=== PATIENT | female | born 1960 | race African-American/Black ===

== ENCOUNTER 2016-09-01 22:52 | Emergency (ER) | payer OTHER ==
[2016-09-01 23:07] VITALS: BP 134/107; PULSE 96; TEMP 98; BMI 31.8
--- NOTE | 2016-09-01 23:27 | PDOC ---
History of Present Illness - General Chief Complaint: Eye Problem Stated Complaint: B/L EYE BURNING Time Seen by Provider: 09/01/16 22:59 History Source: Patient Exam Limitations: No Limitations - History of Present Illness Initial Comments: 09/01/16 23:08 This is a 55-year-old female who comes in complaining of bilateral discomfort in her eyes. Patient said she was eating a corn chips that had a chili pepper extract on it and accidentally rubbed her eyes. Patient said her eyes began to burn and she then took her contacts out which made her eyes hurt more. Patient denies any other complaints. PAST MEDICAL HISTORY: no significant history PAST SURGICAL HISTORY: no significant history FAMILY HISTORY: no pertinant history SOCIAL HISTORY: Pt lives with family and is employed. MEDICATIONS: reviewed ALLERGIES: As per nursing notes Review of Systems General: No fevers or chills, no weakness, no weight loss HEENT: No change in vision. No sore throat,. No ear pain CardioVascular: No chest pain or shortness of breath Respiratory:No cough, or wheezing. Gastrointestinal: no nausea, vomitting, diarrhea or constipation, No rectal bleeding Genitourinary: No dysuria, hematuria, or frequency Musculoskeletal: No joint or muscle pain or swelling Neurologic: No headache, vertigo, dizziness or loss of consciousness Psychiatric: nor depression Skin: No rashes or easy bruising Endocrine: no increased thirst or abnormal weight change Allergic: no skin or latex allergy All other systems reviewed and normal GENERAL: The patient is awake, alert, and fully oriented, in no acute distress. HEAD: Normal with no signs of trauma. EYES: Pupils equal, round and reactive to light, extraocular movements intact, sclera anicteric, there is some mild injection of the conjunctiva with tearing of the eyes bilateral. EXTREMITIES: Normal range of motion, no edema. NEUROLOGICAL: Normal speech, normal gait. PSYCH: Normal mood, normal affect. SKIN: Warm, Dry, normal turgor, no rashes or lesions noted. Reevaluation post irrigation of eyes bilateral. Patient still is experiencing some mild discomfort in her eyes bilateral. Patient will be started on some tobramycin eyedrops as she may have some superficial corneal injury. Patient does have an control officer manager she was told she needs to call her control officer manager and be reevaluated by your control officer manager in the morning. Past History - Past Medical History Allergies/Adverse Reactions: Allergies Allergy/AdvReac Type Severity Reaction Status Date / Time No Known Allergies Allergy Unverified 09/01/16 23:03 Home Medications: Ambulatory Orders Bisoprolol Fumarate/Hctz [Bisoprolol-Hctz 10-6.25 mg Tab] 1 each PO DAILY - Psycho/Social/Smoking Cessation Hx Suicidal Ideation: No Smoking History: Current every day smoker Number of Cigarettes Smoked Daily: 10 Information on smoking cessation initiated: Yes *Physical Exam - Vital Signs Last Vital Signs Temp Pulse Resp BP Pulse Ox 98 F 96 H 18 134/107 96 09/01/16 22:55 09/01/16 22:55 09/01/16 22:55 09/01/16 22:55 09/01/16 22:55 *DC/Admit/Observation/Transfer Diagnosis at time of Disposition: Burning sensation in eye - Discharge Dispostion Disposition: HOME Condition at time of disposition: Stable Admit: No - Patient Instructions Additional Instructions: Put the antibiotic eye drops in your eyes 4 times a day 1 drop in each I for the next 4 days. If you still have any discomfort in the morning call your eye doctor and get an appointment to be reevaluated. Return to the emergency department immediately with ANY new, persistent or worsening symptoms. Continue any medications as previously prescribed by your physician. . Please make sure your doctor reviews the results of your emergency evaluation. Thank you for coming to the Emergency Department today for your care. It was a pleasure to see you today. Please note that your evaluation is INCOMPLETE until you follow-up with your doctor.
[2016-09-01] MEDS ORDERED: TOBRAMYCIN 0.3% OPHTH SOLN 5 ML BOTTLE OU ONE (23:35)
[2016-09-01] MEDS ORDERED: TOBRAMYCIN 0.3% OPHTH SOLN 5 ML BOTTLE ONE (23:37)
== END 2016-09-01 23:44 | disposition home or self-care (01) ==
LOC: FER 22:52
DX: H57.8 Other specified disorders of eye and adnexa (principal); F17.210 Nicotine dependence, cigarettes, uncomplicated
CPT/HCPCS: 99282-25